=== PATIENT | female | born 1955 | race Two or more races ===

== ENCOUNTER 2022-12-05 07:00 | Inpatient (IN) | payer OTHER ==
[~2022-12-05] VITALS: Ht 165.1 cm; Wt 86.2 kg
[2022-12-05] MEDS ORDERED: VASOTEC5 MG PO (09:07)
[2022-12-05] MEDS ORDERED: CYMBALTA60 MG PO (09:07)
[2022-12-05] MEDS ORDERED: GABAPEN PO (09:07)
[2022-12-05] MEDS ORDERED: LIPIT PO (09:08)
[2022-12-05] MEDS ORDERED: BACLOFEN10 MG PO (09:08)
[2022-12-05] MEDS ORDERED: [UNRECOGNIZED DRUG - OTHER] PO (09:10)
[2022-12-05] MEDS ORDERED: [UNRECOGNIZED DRUG - OTHER] (09:34)
[2022-12-12] MEDS ORDERED: VITAMIN C WIT1000 MG (09:10)
[2022-12-12] MEDS ORDERED: TERBINAFINE HC250 MG (09:10)
[2022-12-12] MEDS ORDERED: GABAPENTIN800 M1 (09:10)
[2022-12-12] MEDS ORDERED: CINNAMON500 MG (09:10)
[2022-12-12] MEDS ORDERED: SUMATRIPTAN SUC25 MG (09:10)
[2022-12-12] MEDS ORDERED: GARLIC1000 MG (09:10)
[2022-12-12] MEDS ORDERED: CALCIUM 600-VI1 EAC3 (09:11)
[2022-12-12] MEDS ORDERED: FISH OIL 1,2001 EAC4 (09:11)
[2022-12-12] MEDS ORDERED: ATORVASTATIN CA20 MG (09:11)
[2022-12-12] MEDS ORDERED: OPTIVE EYE DROP15 ML (09:11)
[2022-12-12] MEDS ORDERED: DICLOFENAC SODI75 MG (09:11)
[2022-12-12] MEDS ORDERED: MAGNESIUM OXID500 MG (09:11)
[2022-12-12] MEDS ORDERED: GLUCOSAMINE CH1 EAC5 (09:12)
[2022-12-12] MEDS ORDERED: EMGALITY P120 MG/1 M (09:13)
[2022-12-13] MEDS ORDERED: XARELTO10 MG PO (06:41)
[2022-12-13] MEDS ORDERED: INTEGRA PLUS C1 EACH PO (06:41)
[2022-12-13] MEDS ORDERED: OXYC1TAB9 PO (06:41)
[2022-12-13] MEDS ORDERED: BACTRIM DS TAB1 EACH PO (06:41)
== END 2022-12-13 17:50 | DRG 470 ==
LOC: SURH 12-11 07:00 → O/R 12-11 08:56 → SURH 12-11 19:28
PROVIDERS: ADMIT Orthopaedic Surgery Sports Medicine; ATTEND Orthopaedic Surgery Sports Medicine
PROC: 3E0F7SF Introduction of Other Gas into Respiratory Tract, Via Natural or Artificial Opening (ICD-10-PCS; 2022-12-11)
PROC: 0SRD0J9 Replacement of Left Knee Joint with Synthetic Substitute, Cemented, Open Approach (ICD-10-PCS; principal; 2022-12-11 07:00)
DX: M17.12 Unilateral primary osteoarthritis, left knee (principal); I10 Essential (primary) hypertension; M79.7 Fibromyalgia; G43.909 Migraine, unspecified, not intractable, without status migrainosus; R73.03 Prediabetes